=== PATIENT | female | born 1960 | race Caucasian/White ===

== ENCOUNTER → 2019-03-18 | Outpatient (CLI) | payer OTHER ==
--- NOTE | 2019-03-18 09:04 | KCIC ---
CT CALCIUM SCORING dated 03/18/2019 8:30 AM Indication: Coronary artery screening family history of coronary disease former smoker. Comparison: No comparison is available. Technical factors: Computed tomography of the heart was performed with ECG gating, suspended respiration and without the administration of contrast material. Post processing was performed on the 3-D computer workstation using diastolic phase images to measure the amount of coronary vascular calcium. Scoring was aquired using the Agatston Method. Results: Thorax: No significant abnormality is identified in the lungs or mediastinum. Calcified precarinal and right hilar lymph nodes. There is mild emphysema. Note that this CT exam is limited to the heart and adjacent structures. Coronary arteries: Calcium is absent. Total Agaston calcium score equals 0. Coronary vascular calcium is not detected with this exam. This does not absolutely rule out the presence of atherosclerotic plaque, including unstable plaque, but does imply a very low likelihood of significant luminal obstruction. A negative test may be consistent with a low risk of cardiovascular event in the next 2 to 5 years. Conclusions: Normal study, no coronary artery calcium identified. Recommendations: Healthy lifestyle choices including eating appropriately and exercise are encouraged. Additional supporting information concerning the findings and recommendation contained within this report can be found in the consensus statements on coronary vascular calcium published by the [employer] and [employer] 5 Conference (Circulation 1996; 94: 2234-1079; J Am Trav Cardiol 2000; 36: 326-340 and Circulation 2000; 101: 111-116). Electronically signed by: Brien Concepcion MD (03/18/2019 9:00 AM) [facility]
== END | disposition home or self-care (01) ==
LOC: KCIC CT 08:14
PROVIDERS: ATTEND Family Medicine
DX: Z13.6 Encounter for screening for cardiovascular disorders (principal); J44.9 Chronic obstructive pulmonary disease, unspecified; E11.9 Type 2 diabetes mellitus without complications; I10 Essential (primary) hypertension; G40.909 Epilepsy, unspecified, not intractable, without status epilepticus; Z79.01 Long term (current) use of anticoagulants; Z95.0 Presence of cardiac pacemaker
CPT/HCPCS: 75571

== ENCOUNTER → 2019-11-21 | Outpatient (CLI) | payer OTHER ==
--- NOTE | 2019-11-21 17:52 | KCIC ---
Bilateral digital screening mammograms with 3-D tomosynthesis: Reason for examination: Routine screening. Comparison is made to previous studies dated 06/20/2018 and 06/25/2017. Bilateral mammograms in CC and oblique projections were obtained with 2-D imaging and 3-D tomosynthesis imaging on a Siemens Inspiration unit and reviewed on the workstation. Interpretation was made with the benefit of CAD. The skin and nipples show no abnormalities. No abnormal axillary lymph nodes are seen. The breast parenchyma is heterogeneously dense. (Breast density: Category C.) There appear to be small circumscribed nodules in the right breast at approximately the 5:00 B position 5 cm from the nipple measuring 6 mm in size and in the 7:00 position approximately 6.6 cm from the nipple measuring 6.5 mm in size and in the left breast posterior laterally at approximately the 2:00 position 10 cm from the nipple measuring 7.5 mm in size. There also appears to be a nodular density superiorly in the 10:00 position of the right breast approximately 6 cm from the nipple measuring 1.6 cm in size. Dominant masses, suspicious calcifications or architectural distortion. Impression: Small nodular densities bilaterally. Recommend further evaluation with ultrasound. Your patient's mammogram demonstrates that she has dense breast tissue (breast density category C or D), which could hide abnormalities, and if she has other risk factors for breast cancer that have been identified, she might benefit from supplemental screening tests that may be suggested by you as her ordering physician. Dense breast tissue, in and of itself, is a relatively common condition. Therefore, this information is not provided to cause undue concern, but rather to raise your awareness and to promote discussion with your patient regarding the presence of other risk factors, in addition to dense breast tissue. Your patient's mammography results will be sent to her. BI-RAD Category 0: Incomplete. Needs additional imaging evaluation. "Our facility is accredited by the [employer] Mammography Program." This patient's information has been entered into a reminder system for the patient to be notified with the results of her examination and a target date for the next mammogram. Electronically signed by: Clarisse Cintron MD (11/21/2019 5:49 PM) [id number]
== END ==
LOC: KCIC MAMMO 12:27
PROVIDERS: ATTEND Family Medicine
DX: Z12.31 Encounter for screening mammogram for malignant neoplasm of breast (principal); N64.89 Other specified disorders of breast
CPT/HCPCS: 77063; 77067

== ENCOUNTER → 2019-12-16 | Outpatient (CLI) | payer OTHER ==
--- NOTE | 2019-12-16 14:59 | KCIC ---
BREAST BILATERAL Clinical Indication: Reason: ABNORMAL MAMMOGRAM CALLBACK / Spl. Instructions: / History: Comparison: Bilateral mammogram November 21, 2019 and back to 2018. TECHNIQUE: Real-time ultrasound imaging of the right and left breast is performed. Findings: Right: At the 6:00 position 2 cm from the nipple there is a 6 mm cyst. Question whether this may correspond to the area of nodularity noted at the 5:00 B position. The distance from the nipple is somewhat different. At the 7:00 position 4 cm from the nipple there is a hypoechoic nodule measuring 5 x 2 mm which probably corresponds to the area of nodularity on mammogram. At the 10:00 position 6 cm from the nipple is in region of scarring as noted on prior mammograms with scar markers. Probable areas of scarring are identified on ultrasound best seen on the cine clip. A discrete mass is not identified to account for the nodularity on mammogram. There are no abnormal axillary lymph nodes. Left: At the 2:00 position 5 cm from the nipple there is heterogeneous fibroglandular tissue. The 2:00 position 10 cm from the nipple is at the axillary tail and no abnormality is seen. There are no abnormal axillary lymph nodes. IMPRESSION: 1. In the right breast, no definite correlate for nodularity at 5:00 B position is seen. A small cyst is seen at the 6:00 position 2 cm from the nipple. A hypoechoic nodule at the 7:00 position 4 cm from the nipple likely accounts for the mammogram appearance and may be a fibroadenoma. 2. In the right breast 10:00 position 6 cm from the nipple there is probable scarring related to prior excisional biopsy. No discrete mass is seen. 3. There is no sonographic correlate for the left mammogram finding. 4. Recommend bilateral diagnostic mammogram and breast ultrasound follow-up in 6 months. 5. BI-RADS category 3, probably benign. Electronically signed by: Alireza Espinoza MD (12/16/2019 2:56 PM) [email or web address]
== END | disposition home or self-care (01) ==
LOC: KCIC US 12:20
PROVIDERS: ATTEND Family Medicine
DX: N60.02 Solitary cyst of left breast (principal); N60.01 Solitary cyst of right breast; N63.13 Unspecified lump in the right breast, lower outer quadrant; N63.24 Unspecified lump in the left breast, lower inner quadrant
CPT/HCPCS: 76641

== ENCOUNTER → 2020-06-29 | Outpatient (CLI) | payer OTHER ==
--- NOTE | 2020-06-29 10:15 | KCIC ---
EXAM: Bilateral digital diagnostic mammogram with tomosynthesis; bilateral breast sonogram. HISTORY: 59-year-old female presents for follow-up evaluation of findings within both breasts demonst rated on a prior mammogram and sonogram performed 11/21/2019 and 12/16/2019. TECHNIQUE: Full-field digital craniocaudal and mediolateral oblique 2D and 3D tomosynthesis images of both breasts are obtained for evaluation. Computer aided detection was applied. Sonographic imaging of both breasts including all 4 quadrants and the retroareolar regions was performed. COMPARISON: 12/16/2019 and 11/21/2019 and 06/20/2018 BREAST PARENCHYMAL DENSITY: Level C - Heterogeneously dense. FINDINGS: There is no new suspicious mass, microcalcification or region of architectural distortion. There are multiple stable areas of nodularity within both breasts, allowing for differences in patien t positioning. Sonographic imaging of the right breast demonstrates a stable 6 mm cyst at the 6:00 position 2 cm fro m the nipple. There is a 6 mm circumscribed hypoechoic lesion at the 7:00 position 4 cm from the nipp le, minimally increased compared to the prior study. The imaging appearance favors a benign fibroaden omatoid lesion. There is an adjacent hypoechoic lesion with indistinct slightly angulated margins wit hin the 7:00 position 5 cm from the nipple measuring 4 mm. This demonstrates no correlate on the prio r study. There is stable suspected scarring related to prior lumpectomy within the 10:00 position 6 c m from the nipple There are benign-appearing right axillary lymph nodes. Sonographic imaging of the left breast demonstrates a stable island of suspected dense breast parench yma at the 2:00 position 5 cm from the nipple. There is no suspicious sonographic finding. There are benign-appearing left axillary lymph nodes. IMPRESSION: 1. 4 mm hypoechoic lesion with suspicious morphology within the 7:00 position of the right breast 5 c m from the nipple. Sonographic guided biopsy is recommended. 2. Stable cyst within the right breast at the 6:00 position and minimal interval increase in a suspec leila fibroadenoma at the 7:00 position of the right breast 4 cm from the nipple. There is also stable suspected scarring related to prior surgery at the 10:00 position of the right breast and there is st able dense breast parenchyma within the 2:00 position of the left breast. 3. BI-RADS Category 4: Suspicious abnormality. Sonographic guided biopsy of the finding at the 7:00 p osition the right breast 5 cm from the nipple is recommended. These findings and recommendations were discussed with the patient and communicated to the medical as sistant of the referring physician at 1010 hours on 06/29/2020. If your mammogram demonstrates that you have dense breast tissue, which could hide abnormalities, and if you have other risk factors for breast cancer that have been identified, you might benefit from s upplemental screening tests that may be suggested by your ordering physician. Dense breast tissue, i n and of itself, is a relatively common condition. This information is not provided to cause undue c oncern, but rather to raise your awareness and to promote discussion with your physician regarding th e presence of other risk factors, in addition to dense breast tissue. A report of your mammography re sults will be sent to you and your physician. You should contact your physician if you have any ques tions or concerns regarding this report. Mammography is a sensitive method for finding small breast cancers, but it does not detect them all a nd is not a substitute for careful clinical examination. A negative mammogram does not negate a clin ically suspicious finding and should not result in delay in biopsying a clinically suspicious abnorma lity. PQRS compliance statement - Patient information was entered into a reminder system with a target due date for the next mammogram. "Our facility is accredited by the [employer] Mammography Program." Electronically signed by: Kristen Gonzalez MD (06/29/2020 10:12 AM) [facility]
== END ==
LOC: KCIC MAMMO 08:38
PROVIDERS: ATTEND Family Medicine
DX: R92.8 Other abnormal and inconclusive findings on diagnostic imaging of breast (principal); N60.01 Solitary cyst of right breast
CPT/HCPCS: 76641; 77066

== ENCOUNTER → 2020-08-09 | Outpatient (CLI) | payer OTHER ==
--- NOTE | 2020-08-09 13:56 | RAD ---
EXAM: Sonographic guided right breast biopsy; right breast biopsy clip placement; right breast postbi opsy mammogram. HISTORY: 59-year-old female presents for sonographic and biopsy of a 4 mm hypoechoic lesion within th e 7:00 position of the right breast demonstrated on a sonogram performed 06/29/2020. TECHNIQUE: The risks of the procedure discussed with the patient and written and verbal consent was o btained. A timeout was performed. Sonographic imaging of the right breast was performed and the lesio n of concern measuring at the 7:00 position was identified. The skin overlying this region was steril hayes prepped, draped and infiltrated with 1 percent lidocaine. Multiple core samples were obtained thr ough the lesion of concern with sonographic guidance. A biopsy clip was advanced into the lesion. Man ual compression was maintained until hemostasis was achieved. A sterile bandage was placed. A post bi opsy mammogram demonstrates the biopsy clip at the 5:30 position. The difference in clock position co mpared to the sonogram likely corresponds with differences in patient positioning between imaging mod alities. The patient tolerated the procedure without complication and was discharged in stable condit ion. IMPRESSION: Successful sonographic guided biopsy of a lesion within the right breast and biopsy clip placement. An addendum to this report will be submitted when pathology results are available. Electronically signed by: Kristen Gonzalez MD (08/09/2020 1:54 PM) [id number]
== END | disposition home or self-care (01) ==
LOC: US 12:01
PROVIDERS: ATTEND Family Medicine
DX: N63.13 Unspecified lump in the right breast, lower outer quadrant (principal); R92.8 Other abnormal and inconclusive findings on diagnostic imaging of breast
CPT/HCPCS: 19083; 77065; A4648

== ENCOUNTER → 2021-05-19 | Outpatient (CLI) | payer OTHER ==
--- NOTE | 2021-05-19 15:50 | KCIC ---
EXAM: XR LUMBAR SPINE 4+V 05/19/2021 3:23 PM CLINICAL INDICATION: Right flank and lower back pain with right-sided sciatica for several weeks. He maturia. COMPARISON: None TECHNIQUE: 5 views of the lumbar spine FINDINGS: There are 5 nonrib-bearing lumbar vertebral bodies. No acute fracture. There is 2 mm anter olisthesis of L4 on L5 and L5 on S1. Mild disc space narrowing throughout the lumbar spine. Small ant erior osteophytes in the lower thoracic spine L1-L2 and L2-L3. There is lower lumbar facet arthrosis. Moderate volume of stool. No abnormal calcifications seen in the visualized portion of the abdomen. IMPRESSION: No acute osseous abnormality. Mild degenerative disc disease and lower lumbar facet arth rosis. Electronically signed by: Sheryl Arechiga MD (05/19/2021 3:47 PM) [id number]
== END ==
LOC: KCIC 15:20
PROVIDERS: ATTEND Family Medicine
DX: M51.36 Other intervertebral disc degeneration, lumbar region (principal); M47.816 Spondylosis without myelopathy or radiculopathy, lumbar region; M48.061 Spinal stenosis, lumbar region without neurogenic claudication; M25.78 Osteophyte, vertebrae; M43.17 Spondylolisthesis, lumbosacral region; M54.41 Lumbago with sciatica, right side
CPT/HCPCS: 72110